=== PATIENT | male | born 1995 | race Hispanic/Latino ===

== ENCOUNTER 2019-04-12 19:54 | Day surgery (SDC) | payer OTHER ==
[2019-04-12 21:43] LABS: #Basophils 0.1 thou/uL (0.0-0.2); #Eosinphils 0.4 thou/uL (0.0-0.7); #Lymphocytes 1.7 thou/uL (1.20-3.40); #Monocytes 0.5 thou/uL (0.11-0.59); #Neutrophils 4.9 thou/uL (1.40-6.50); %Basophils 0.7 % (0.0-1.0); %Eosinophils 5.1 % (0.0-10.0); %Lymphocytes 22.7 % (21.0-51.0); %Monocytes 6.7 % (0.0-10.0); %Neutrophils 64.7 % (42.0-75.0); Hemoglobin 12.2 g/dL (14.0-18.0); MDiff Complete? YES; Mean Corpuscular HGB CONC 30.8 g/dL (32.0-36.0); Mean Corpuscular Hemoglobin 22.8 pg (27.0-31.0); Mean Corpuscular Volume 74.2 fL (78.0-98.0); Mean Platelet Volume 9.7 fL (7.4-10.4); Microcytosis SLIGHT = 6-15 cells (100X) (0-5/hpf); Platelet Count 228 thou/uL (130-400); Platelet Morphology Comment Appears Adequate; RBC Distribution Width 15.4 % (11.5-14.5); Red Blood Cell (RBC) Count 5.35 mill/uL (4.70-6.10); White Blood Cell (WBC) Count 7.6 thou/uL (4.8-10.8)
[2019-04-12 21:45] LABS: ALT (SGPT) 13 U/L (8-55); AST (SGOT) 19 U/L (5-34); Albumin 4.9 g/dL (3.5-5.0); Alkaline Phosphatase 74 U/L (40-150); Anion Gap 14 mmol/L (10-20); BUN (Urea Nitrogen) 16 mg/dL (8.9-20.6); Bilirubin, Total 0.3 mg/dL (0.2-1.2); Calc. Creatinine Clearance 0 mL/min (70-130); Calcium 9.7 mg/dL (7.8-10.44); Carbon Dioxide 26 mmol/L (22-29); Chloride 105 mmol/L (98-107); Estimated GFR-MDRD Greater than 90; Glucose 78 mg/dL (70-105); Potassium 3.9 mmol/L (3.5-5.1); Protein, Total 7.9 g/dL (6.0-8.3); Sodium 141 mmol/L (136-145)
[2019-04-12] MEDS ORDERED: Fentanyl 100 MCG/2 ML VIAL ONE (23:03)
--- NOTE | 2019-04-13 05:03 | HP ---
DATE OF CONSULTATION: 04/12/2019 REASON FOR CONSULTATION: Esophageal food bolus. HISTORY OF PRESENT ILLNESS: Juan Alberto Phan is a 23-year-old man who presented with symptoms of esophageal food bolus impaction. He says that about 3 hours ago, he was eating steak. On the second bite, he felt as if it lodged in the mid chest. Since then, he has been unable to swallow anything, either solid or liquid or even handle his secretions. He is having to spit into a bag. He does not have severe chest pain, but he simply cannot swallow. Symptoms are consistent with prior episodes of esophageal food bolus impaction. Interestingly, the patient states that for the past 3 years, he has had six prior episodes of food bolus impaction requiring EGD with bolus extraction. This has been elsewhere and he recently moved to the area. Interestingly, the patient cannot give any underlying diagnosis for why he keeps having these episodes. He has never heard of the eosinophilic esophagitis. He recalls being told that his esophagus was small in caliber and that there may be an allergy involved, so I suspect he might indeed have eosinophilic esophagitis. He reports the last episode was just three months ago and biopsies were taken at that time, but he never got the result on that. The patient has no other complaints. He will occasionally have some diarrhea and mild abdominal discomfort infrequently. He does not smoke and alcohol use is occasional. There is no family history of GI malignancy. He does not take any medications. REVIEW OF SYSTEMS: Full review of systems including constitutional, head, eyes, ears, nose, throat, GI, , cardiovascular, respiratory, musculoskeletal, neurologic systems is negative, except as noted in the HPI. PAST MEDICAL HISTORY: Recurrent esophageal food bolus impactions. PAST SURGICAL HISTORY: EGD with food bolus extraction x6 over the past 3 years. MEDICATIONS: None. ALLERGIES: NO KNOWN DRUG ALLERGIES. SOCIAL HISTORY: No smoking. No drug use. Alcohol use is occasional. FAMILY HISTORY: Negative for GI malignancy. PHYSICAL EXAMINATION: GENERAL: A healthy-appearing 23-year-old man sitting up in bed comfortably, in no distress, but occasionally spitting into an emesis bag. SKIN: No jaundice, no rashes were palpable. HEENT: Eyes; no scleral icterus. Extraocular movements intact. ENT; mucous membranes moist. No oral lesions. LYMPH: No submandibular or supraclavicular lymphadenopathy. NECK: Thyroid, nontender to palpation. HEART: Regular rate and rhythm. LUNGS: Clear to auscultation bilaterally. ABDOMEN: Flat. Bowel sounds present. Soft, nontender to palpation throughout. EXTREMITIES: No peripheral edema. VESSELS: Radial pulses 2+ bilaterally. NEUROLOGIC: Cranial nerves 2 through 12 intact bilaterally. ASSESSMENT/PLAN: 1. Esophageal food bolus impaction, recurrent. 2. Chronic dysphagia. This makes the 7th episode of food bolus impaction over the past 3 years for the patient. I suspect that he probably has eosinophilic esophagitis. We will plan for urgent EGD tonight to extract the food bolus and also assessment of underlying cause. Depending on findings, we will likely take esophageal biopsies. We may need to discharge him on acid suppression as well. Anticipate he will be able to be discharged home from the PACU. The patient understands and desires to proceed. Thank you for the consultation. Please call anytime with questions or concerns. Job ID: [id number]
--- NOTE | 2019-04-13 05:36 | OP ---
DATE OF PROCEDURE: 04/12/2019 [employer] SURGEON: None. PROCEDURE PERFORMED: Esophagogastroduodenoscopy with foreign body extraction and esophageal biopsies. INDICATIONS FOR PROCEDURE: A 23-year-old man with recurrent esophageal food bolus impaction. MEDICATIONS: See Anesthesia record. FINDINGS: After discussion of the risks, benefits, and alternatives of the procedure, informed consent was obtained and witnessed. Pre-endoscopic cardiopulmonary examination was satisfactory. Time-out was performed before sedation was achieved. Sedation was achieved with Anesthesia assistance in the endoscopy unit. The patient was placed in the left lateral decubitus position, endotracheally intubated for airway protection under general anesthesia. A Pentax adult upper endoscope was placed into the oropharynx and advanced through the cricopharyngeus under direct visualization. In the proximal esophagus at 20 cm, a large meat bolus was encountered in the esophagus. This did not pass on down with simple air insufflation. At this point, we used a Barnard Net in an attempt to snare the food bolus. Thankfully with further air insufflation and gentle nudging with the edge of the Barnard Net, the food bolus passed down distally into the esophagus and finally beyond the GE junction into the stomach and therefore the esophagus was fully evacuated of food contents. At this point, attention was turned toward examining the esophagus. The patient has diffuse narrow caliber esophagus, particularly severe from 20 cm to 30 cm from the incisors. There is mucosal tearing induced of the esophageal mucosa from 20 cm to 30 cm just with endoscope passage. The appearance is highly characteristic of probable eosinophilic esophagitis. Multiple biopsies were obtained from the midesophagus to evaluate for eosinophilic esophagitis. The endoscope was passed beyond a normal-appearing Z-line into the stomach. There is a significant amount of food within the gastric lumen. This obscures the view of much of the gastric antrum and also obscures the view of the pylorus where visualized the gastric antrum appeared normal. There was no evidence of hiatal hernia. The upper endoscope was then completely withdrawn and the patient allowed to recover. The patient tolerated the procedure well. There were no immediate postprocedure complications. IMPRESSION: 1. Esophageal food bolus (steak) at 20 cm, gently advanced into the stomach. 2. Severe esophageal stenosis from 20 cm to 30 cm, with narrow caliber and fibrosis, suggestive of eosinophilic esophagitis. Mucosal tears induced by scope passage. Midesophageal biopsies obtained. 3. Food in the stomach. RECOMMENDATIONS: 1. Liquid diet tomorrow. 2. Mechanical soft diet thereafter. 3. Chew food thoroughly. 4. Prevacid SoluTab 30 mg g by mouth twice daily. 5. Follow up results of esophageal biopsies. 6. Follow up in the GI Clinic in the next 3 to 4 weeks. Job ID: [id number]
== END 2019-04-13 00:39 | disposition home or self-care (01) ==
LOC: EDSEX 19:54 → ERS 19:54 → SDC/OP 23:29
PROVIDERS: ATTEND Internal Medicine
PROC: 0DB58ZZ Excision of Esophagus, Via Natural or Artificial Opening Endoscopic (ICD-10-PCS; principal; 2019-04-12)
PROC: 0DC58ZZ Extirpation of Matter from Esophagus, Via Natural or Artificial Opening Endoscopic (ICD-10-PCS; principal; 2019-04-12)
DX: T18.128A Food in esophagus causing other injury, initial encounter (principal); K20.0 Eosinophilic esophagitis; K22.2 Esophageal obstruction; J45.909 Unspecified asthma, uncomplicated; Z91.010 Allergy to peanuts; Z91.013 Allergy to seafood; Z91.018 Allergy to other foods
CPT/HCPCS: 80053; 85025; 88305; 88312; 88313; 93005; J3010

== ENCOUNTER 2019-08-08 09:20 | Emergency (ER) | payer OTHER ==
[2019-08-08] MEDS ORDERED: Acetaminophen 325 MG TAB ONE (10:08)
== END 2019-08-08 16:39 | disposition home or self-care (01) ==
LOC: ERS 09:20
DX: B34.9 Viral infection, unspecified (principal)
CPT/HCPCS: 87804; 99283

== ENCOUNTER 2020-06-30 20:04 | Emergency (ER) | payer OTHER, SELFPAY ==
[2020-06-30] MEDS ORDERED: Diphenoxylate HCl/Atropine Tablet ONE ×2 (20:38→20:39)
[2020-06-30] MEDS ORDERED: Diphenoxylate HCl/Atropine Tablet PO SCH (20:45)
[2020-06-30 20:53] LABS: #Basophils 0.1 thou/uL (0.0-0.2); #Eosinphils 0.6 thou/uL (0.0-0.7); #Lymphocytes 1.7 thou/uL (1.20-3.40); #Monocytes 1.1 thou/uL (0.11-0.59); %Basophils 0.5 % (0.0-1.0); %Lymphocytes 16.2 % (21.0-51.0); %Monocytes 10.1 % (0.0-10.0); %Neutrophils 67.2 % (42.0-75.0); Mean Corpuscular HGB CONC 32.6 g/dL (32.0-36.0); Mean Corpuscular Hemoglobin 26.6 pg (27.0-31.0); Mean Corpuscular Volume 81.6 fL (78.0-98.0); Mean Platelet Volume 8.1 fL (7.4-10.4); Platelet Count 318 thou/uL (130-400); RBC Distribution Width 15.2 % (11.5-14.5); Red Blood Cell (RBC) Count 5.28 mill/uL (4.70-6.10); White Blood Cell (WBC) Count 10.4 thou/uL (4.8-10.8)
[2020-06-30 21:14] LABS: ALT (SGPT) 7 U/L (8-55); AST (SGOT) 14 U/L (5-34); Alkaline Phosphatase 57 U/L (40-110); Anion Gap 13 mmol/L (10-20); BUN (Urea Nitrogen) 11 mg/dL (8.9-20.6); Bilirubin, Total 0.3 mg/dL (0.2-1.2); Calc. Creatinine Clearance 0 mL/min (70-130); Calcium 7.8 mg/dL (7.8-10.44); Carbon Dioxide 21 mmol/L (22-29); Chloride 108 mmol/L (98-107); Estimated GFR-MDRD Greater than 90; Globulin 2.1 g/dL (2.4-3.5); Glucose 84 mg/dL (70-105); Lipase 15 U/L (8-78); Potassium 3.9 mmol/L (3.5-5.1); Protein, Total 5.1 g/dL (6.0-8.3); Sodium 138 mmol/L (136-145)
[2020-06-30 21:39] LABS: Free T4 (Free Thyroxine) 0.86 ng/dL (0.70-1.48); Thyroid Stimulating Hormone 0.9812 uIU/mL (0.35-4.94)
== END 2020-06-30 22:32 | disposition home or self-care (01) ==
LOC: ERS 20:04
DX: R19.7 Diarrhea, unspecified (principal)
CPT/HCPCS: 36415; 80053; 83690; 84439; 84443; 85025; 99284

== ENCOUNTER 2022-03-27 17:03 | Emergency (ER) | payer OTHER, BC ==
[~2022-03-27 17:03] MED LIST: GASTROGRAFIN 30 ML BOT ONE; Iopamidol-370 76% 500 ML 1 ML ONE
[2022-03-27 17:23] LABS: #Basophils 0.1 thou/uL (0.0-0.2); #Eosinphils 0.2 thou/uL (0.0-0.7); #Lymphocytes 1.7 thou/uL (1.20-3.40); #Monocytes 1.6 thou/uL (0.11-0.59); #Neutrophils 10.5 thou/uL (1.40-6.50); %Basophils 0.4 % (0.0-1.0); %Eosinophils 1.5 % (0.0-10.0); %Lymphocytes 11.9 % (21.0-51.0); %Monocytes 11.2 % (0.0-10.0); %Neutrophils 74.9 % (42.0-75.0); Hemoglobin 17.3 g/dL (14.0-18.0); Mean Corpuscular HGB CONC 32.5 g/dL (32.0-36.0); Mean Corpuscular Hemoglobin 26.7 pg (27.0-31.0); Mean Corpuscular Volume 82.4 fL (78.0-98.0); Mean Platelet Volume 8.5 fL (7.4-10.4); Platelet Count 384 thou/uL (130-400); RBC Distribution Width 15.6 % (11.5-14.5); Red Blood Cell (RBC) Count 6.46 mill/uL (4.70-6.10)
[2022-03-27 17:45] LABS: ALT (SGPT) 7 U/L (8-55); AST (SGOT) 15 U/L (5-34); Alkaline Phosphatase 63 U/L (40-110); Anion Gap 17 mmol/L (10-20); BUN (Urea Nitrogen) 17 mg/dL (8.9-20.6); Bilirubin, Total 0.4 mg/dL (0.2-1.2); Calc. Creatinine Clearance 0 mL/min (70-130); Calcium 8.2 mg/dL (7.8-10.44); Carbon Dioxide 20 mmol/L (22-29); Chloride 102 mmol/L (98-107); Estimated GFR 121; Globulin 2.3 g/dL (2.4-3.5); Glucose 99 mg/dL (70-105); Lipase 16 U/L (8-78); Potassium 4.4 mmol/L (3.5-5.1); Protein, Total 5.3 g/dL (6.0-8.3); Sodium 135 mmol/L (136-145)
[2022-03-27 18:33] LABS: Bacteria/HPF None Seen HPF (None Seen); Bilirubin 1+ (Negative); Blood, Urine Negative (Negative); Clarity Clear (Clear); Glucose, Urine (Dipstick) Normal (Negative); Ketone, Urine 40 mg/dL (Negative); Leukocyte Negative Leu/uL (Negative); Mucous/LPF Rare LPF (<2+); Nitrite Negative (Negative); Protein, Urine (Dipstick) 30 mg/dL (Neg-Trace); RBC/HPF 0-3 HPF (0-3); Renal Epithelial 0-3 HPF (None Seen); Squamous Epithelial 0-3 HPF (0-3); Urobilinogen Normal mg/dL (Less than 2); WBC/HPF 0-3 HPF (0-3)
[2022-03-27] MEDS ORDERED: Ketorolac Tromethamine 30 MG/ML VIAL ONE (21:24)
[2022-03-27] MEDS ORDERED: Sucralfate 1 GM/10 ML UDCUP ONE (21:24)
== END 2022-03-27 21:35 | disposition home or self-care (01) ==
LOC: ERS 17:03
DX: I88.0 Nonspecific mesenteric lymphadenitis (principal)
CPT/HCPCS: 74177; 80053; 81003; 81015; 83690; 85025; 96374; J1885; Q9963; Q9967

== ENCOUNTER 2022-03-28 12:18 | Emergency (ER) | payer OTHER, BC ==
[2022-03-28] MEDS ORDERED: EPINEPHrine 1 MG/ML VIAL ONE ×2 (12:37→12:45)
[2022-03-28] MEDS ORDERED: methylPREDNISolone Sod Succ/PF 125 MG/2 ML VIAL ONE ×2 (12:37→12:45)
[2022-03-28] MEDS ORDERED: Famotidine/PF 20 mg/2ml Vial ONE ×2 (12:37→12:45)
[2022-03-28] MEDS ORDERED: diphenhydrAMINE 50 MG/ML VIAL ONE ×2 (12:37→12:45)
[2022-03-28 12:52] LABS: #Basophils 0.1 thou/uL (0.0-0.2); #Eosinphils 0.4 thou/uL (0.0-0.7); #Monocytes 1.7 thou/uL (0.11-0.59); #Neutrophils 12.3 thou/uL (1.40-6.50); %Basophils 0.4 % (0.0-1.0); %Eosinophils 2.2 % (0.0-10.0); %Lymphocytes 12.2 % (21.0-51.0); %Monocytes 10.2 % (0.0-10.0); Hemoglobin 15.9 g/dL (14.0-18.0); Mean Corpuscular HGB CONC 32.7 g/dL (32.0-36.0); Mean Corpuscular Hemoglobin 27.1 pg (27.0-31.0); Mean Corpuscular Volume 82.9 fL (78.0-98.0); Mean Platelet Volume 8.3 fL (7.4-10.4); Platelet Count 417 thou/uL (130-400); RBC Distribution Width 15.6 % (11.5-14.5); Red Blood Cell (RBC) Count 5.87 mill/uL (4.70-6.10); White Blood Cell (WBC) Count 16.5 thou/uL (4.8-10.8)
[2022-03-28 13:06] LABS: ALT (SGPT) 7 U/L (8-55); AST (SGOT) 21 U/L (5-34); Albumin 2.9 g/dL (3.5-5.0); Alkaline Phosphatase 59 U/L (40-110); Anion Gap 15 mmol/L (10-20); BUN (Urea Nitrogen) 16 mg/dL (8.9-20.6); Bilirubin, Total 0.4 mg/dL (0.2-1.2); Calc. Creatinine Clearance 0 mL/min (70-130); Calcium 7.9 mg/dL (7.8-10.44); Carbon Dioxide 21 mmol/L (22-29); Chloride 101 mmol/L (98-107); Estimated GFR 120; Globulin 2.3 g/dL (2.4-3.5); Glucose 113 mg/dL (70-105); Lipase 19 U/L (8-78); Magnesium 1.7 mg/dL (1.6-2.6); Potassium 4.4 mmol/L (3.5-5.1); Protein, Total 5.2 g/dL (6.0-8.3); Sodium 133 mmol/L (136-145)
[2022-03-28 16:21] LABS: Lactic Acid 1.7 mmol/L (0.5-2.2)
[2022-03-28] MEDS ORDERED: Ondansetron PF 4 MG/2 ML Vial ONE (16:44)
[2022-03-28] MEDS ORDERED: Dicyclomine 20 MG TAB ONE (16:44)
== END 2022-03-28 17:14 | disposition home or self-care (01) ==
LOC: ERS 12:18
DX: T78.09XA Anaphylactic reaction due to other food products, initial encounter (principal); I88.0 Nonspecific mesenteric lymphadenitis
CPT/HCPCS: 36415; 80053; 83605; 83690; 83735; 85025; 94760; 96372; 96374; 96375; J0171; J1200; J2405; J2930; S0028

== ENCOUNTER 2022-04-02 13:32 | Emergency (ER) | payer OTHER, BC ==
[2022-04-02 14:12] LABS: #Basophils 0.1 thou/uL (0.0-0.2); #Eosinphils 0.8 thou/uL (0.0-0.7); #Lymphocytes 1.6 thou/uL (1.20-3.40); #Monocytes 0.9 thou/uL (0.11-0.59); #Neutrophils 15.5 thou/uL (1.40-6.50); %Basophils 0.4 % (0.0-1.0); %Eosinophils 4.1 % (0.0-10.0); %Lymphocytes 8.3 % (21.0-51.0); %Monocytes 4.9 % (0.0-10.0); %Neutrophils 82.3 % (42.0-75.0); Hemoglobin 15.5 g/dL (14.0-18.0); Mean Corpuscular HGB CONC 32.3 g/dL (32.0-36.0); Mean Corpuscular Hemoglobin 26.9 pg (27.0-31.0); Mean Corpuscular Volume 83.3 fL (78.0-98.0); Mean Platelet Volume 7.9 fL (7.4-10.4); Platelet Count 409 thou/uL (130-400); RBC Distribution Width 16.3 % (11.5-14.5); Red Blood Cell (RBC) Count 5.76 mill/uL (4.70-6.10); White Blood Cell (WBC) Count 18.8 thou/uL (4.8-10.8)
[2022-04-02 14:36] LABS: ALT (SGPT) 9 U/L (8-55); AST (SGOT) 17 U/L (5-34); Albumin 3.1 g/dL (3.5-5.0); Alkaline Phosphatase 63 U/L (40-110); Anion Gap 17 mmol/L (10-20); BUN (Urea Nitrogen) 15 mg/dL (8.9-20.6); Bilirubin, Total 0.6 mg/dL (0.2-1.2); Calc. Creatinine Clearance 0 mL/min (70-130); Calcium 8.4 mg/dL (7.8-10.44); Carbon Dioxide 20 mmol/L (22-29); Chloride 101 mmol/L (98-107); Estimated GFR 123; Globulin 2.3 g/dL (2.4-3.5); Glucose 85 mg/dL (70-105); Lipase 26 U/L (8-78); Magnesium 1.5 mg/dL (1.6-2.6); Protein, Total 5.4 g/dL (6.0-8.3); Sodium 134 mmol/L (136-145)
[2022-04-02] MEDS ORDERED: Iopamidol-370 76% 500 ML 1 ML ONE (15:30)
[2022-04-02] MEDS ORDERED: Piperacillin/Tazobactam 3.375 GM VIAL ONE (16:07)
[2022-04-02 16:20] LABS: Bilirubin Negative (Negative); Blood, Urine Negative (Negative); Clarity Clear (Clear); Glucose, Urine (Dipstick) Normal (Negative); Ketone, Urine 60 mg/dL (Negative); Leukocyte Negative Leu/uL (Negative); Nitrite Negative (Negative); Protein, Urine (Dipstick) 20 mg/dL (Neg-Trace); Urobilinogen Normal mg/dL (Less than 2); pH, Urine 5.5 (5.0-9.0)
[2022-04-02 16:24] LABS: Specific Gravity, Urine 1.064 (1.002-1.036)
[2022-04-02 17:27] LABS: SARS-CoV-2 NAA Rapid Test Not Detected (NotDetected)
== END 2022-04-03 00:27 ==
LOC: ERS 13:32
DX: A41.9 Sepsis, unspecified organism (principal); K52.9 Noninfective gastroenteritis and colitis, unspecified; Z20.822 Contact with and (suspected) exposure to COVID-19
CPT/HCPCS: 36415; 74177; 80053; 81003; 83605; 83690; 83735; 85025; 87040; 87086; 96361; 96365; J2543; Q9967; U0002

== ENCOUNTER 2022-05-26 12:56 | Emergency (ER) | payer OTHER, BC ==
[2022-05-26 13:56] LABS: #Eosinphils 0.4 thou/uL (0.0-0.7); #Lymphocytes 1.3 thou/uL (1.20-3.40); #Monocytes 0.5 thou/uL (0.11-0.59); %Basophils 0.7 % (0.0-1.0); %Eosinophils 6.1 % (0.0-10.0); %Lymphocytes 20.2 % (21.0-51.0); %Monocytes 8.5 % (0.0-10.0); %Neutrophils 64.5 % (42.0-75.0); Hemoglobin 11.2 g/dL (14.0-18.0); Mean Corpuscular HGB CONC 31.5 g/dL (32.0-36.0); Mean Corpuscular Hemoglobin 27.2 pg (27.0-31.0); Mean Corpuscular Volume 86.4 fL (78.0-98.0); Mean Platelet Volume 8.6 fL (7.4-10.4); Platelet Count 227 thou/uL (130-400); RBC Distribution Width 14.3 % (11.5-14.5); Red Blood Cell (RBC) Count 4.12 mill/uL (4.70-6.10); White Blood Cell (WBC) Count 6.2 thou/uL (4.8-10.8)
[2022-05-26 14:25] LABS: ALT (SGPT) 21 U/L (8-55); AST (SGOT) 26 U/L (5-34); Albumin 3.6 g/dL (3.5-5.0); Alkaline Phosphatase 68 U/L (40-110); Anion Gap 13 mmol/L (10-20); BUN (Urea Nitrogen) 6 mg/dL (8.9-20.6); Bilirubin, Total 0.3 mg/dL (0.2-1.2); Calc. Creatinine Clearance 0 mL/min (70-130); Calcium 6.7 mg/dL (7.8-10.44); Carbon Dioxide 26 mmol/L (22-29); Chloride 106 mmol/L (98-107); Estimated GFR 134; Globulin 2.7 g/dL (2.4-3.5); Glucose 80 mg/dL (70-105); Potassium 3.7 mmol/L (3.5-5.1); Protein, Total 6.3 g/dL (6.0-8.3); Sodium 141 mmol/L (136-145)
[2022-05-26] MEDS ORDERED: CALCIUM GLUC 1GM/NS 50ML 1 GM in Premix Bag 1 BAG IVPB SCH (15:30)
[2022-05-26] MEDS ORDERED: Magnesium 2 GM/50 ML BAG (IN WATER) ONE (15:52)
[2022-05-26 16:08] LABS: Magnesium 0.9 mg/dL (1.6-2.6); Phosphorus 4.1 mg/dL (2.3-4.7)
[2022-05-26 19:16] LABS: ALT (SGPT) 21 U/L (8-55); AST (SGOT) 23 U/L (5-34); Albumin 3.7 g/dL (3.5-5.0); Alkaline Phosphatase 76 U/L (40-110); Anion Gap 12 mmol/L (10-20); BUN (Urea Nitrogen) 5 mg/dL (8.9-20.6); Bilirubin, Total 0.3 mg/dL (0.2-1.2); Calc. Creatinine Clearance 0 mL/min (70-130); Calcium 7.5 mg/dL (7.8-10.44); Carbon Dioxide 27 mmol/L (22-29); Chloride 105 mmol/L (98-107); Estimated GFR 132; Globulin 2.8 g/dL (2.4-3.5); Glucose 84 mg/dL (70-105); Magnesium 2.3 mg/dL (1.6-2.6); Potassium 3.4 mmol/L (3.5-5.1); Protein, Total 6.5 g/dL (6.0-8.3); Sodium 141 mmol/L (136-145)
== END 2022-05-26 19:37 | disposition home or self-care (01) ==
LOC: ERS 12:56
DX: E83.51 Hypocalcemia (principal); E83.42 Hypomagnesemia
CPT/HCPCS: 36415; 80053; 83735; 84100; 85025; 93005; 96365; 96366; 96368; J0610; J3475

== ENCOUNTER 2023-02-28 18:37 | Emergency (ER) | payer OTHER, BC ==
[~2023-02-28 18:37] MED LIST changes: -GASTROGRAFIN 30 ML BOT ONE; -Iopamidol-370 76% 500 ML 1 ML ONE; +Iopamidol-370 76% 500 ML MDV (1 ML CHARGE) ONE
[2023-02-28 19:18] LABS: #Basophils 0.1 thou/uL (0.0-0.2); #Eosinphils 0.6 thou/uL (0.0-0.7); #Monocytes 1.3 thou/uL (0.11-0.59); %Basophils 0.4 % (0.0-1.0); %Eosinophils 3.9 % (0.0-10.0); %Lymphocytes 10.3 % (21.0-51.0); %Monocytes 9.2 % (0.0-10.0); %Neutrophils 75.9 % (42.0-75.0); Hemoglobin 17.7 g/dL (14.0-18.0); Mean Corpuscular HGB CONC 33.2 g/dL (32.0-36.0); Mean Corpuscular Volume 84.2 fl (78.0-98.0); Platelet Count 406 10x3/uL (130-400); RBC Distribution Width 13.8 % (11.5-14.5); Red Blood Cell (RBC) Count 6.33 mill/uL (4.70-6.10); White Blood Cell (WBC) Count 14.4 10x3/uL (4.8-10.8)
[2023-02-28 19:40] LABS: ALT (SGPT) 8 U/L (8-55); AST (SGOT) 11 U/L (5-34); Albumin 3.3 g/dL (3.5-5.0); Alkaline Phosphatase 75 U/L (40-110); Anion Gap 13 mmol/L (10-20); BUN (Urea Nitrogen) 14 mg/dL (8.9-20.6); Bilirubin, Total 0.3 mg/dL (0.2-1.2); Calc. Creatinine Clearance 0 mL/min (70-130); Calcium 8.6 mg/dL (7.8-10.44); Carbon Dioxide 26 mmol/L (22-29); Chloride 103 mmol/L (98-107); Estimated GFR 120; Globulin 2.2 g/dL (2.4-3.5); Glucose 93 mg/dL (70-105); Lipase 17 U/L (8-78); Magnesium 1.7 mg/dL (1.6-2.6); Potassium 3.9 mmol/L (3.5-5.1); Protein, Total 5.5 g/dL (6.0-8.3); Sodium 138 mmol/L (136-145)
== END 2023-02-28 23:56 | disposition home or self-care (01) ==
LOC: ERS 18:37
DX: R19.7 Diarrhea, unspecified (principal); E86.0 Dehydration; R59.1 Generalized enlarged lymph nodes; D72.829 Elevated white blood cell count, unspecified
CPT/HCPCS: 36415; 74177; 80053; 83690; 83735; 85025; 96360; Q9967

== ENCOUNTER 2023-03-08 03:39 | Inpatient (IN) | payer BC, OTHER ==
[2023-03-08] MEDS ORDERED: Morphine 4 MG/ML VIAL ONE (04:31)
[2023-03-08] MEDS ORDERED: Ondansetron PF 4 MG/2 ML Vial ONE (04:32)
[2023-03-08 05:12] LABS: #Basophils 0.1 thou/uL (0.0-0.2); #Eosinphils 0.4 thou/uL (0.0-0.7)
[2023-03-08] MEDS ORDERED: diphenhydrAMINE 50 MG/ML VIAL ONE (05:17)
[2023-03-08 05:33] LABS: ALT (SGPT) 9 U/L (8-55); AST (SGOT) 15 U/L (5-34); Albumin 2.6 g/dL (3.5-5.0); Alkaline Phosphatase 77 U/L (40-110); Anion Gap 12 mmol/L (10-20); BUN (Urea Nitrogen) 10 mg/dL (8.9-20.6); Bilirubin, Total 0.4 mg/dL (0.2-1.2); Calc. Creatinine Clearance 0 mL/min (70-130); Calcium 8.1 mg/dL (7.8-10.44); Carbon Dioxide 22 mmol/L (22-29); Chloride 107 mmol/L (98-107); Estimated GFR 96; Glucose 109 mg/dL (70-105); Lipase 14 U/L (8-78); Magnesium 1.5 mg/dL (1.6-2.6); Potassium 3.5 mmol/L (3.5-5.1); Protein, Total 4.6 g/dL (6.0-8.3); Sodium 137 mmol/L (136-145)
[2023-03-08] MEDS ORDERED: Magnesium 2 GM/50 ML BAG (IN WATER) ONE (05:45)
[2023-03-08 05:49] LABS: HIV (1/2) Antibody/Antigen Non-Reactive (NonReactive); HIV 1/2 INDEX 0.23 S/CO (<1.00)
[2023-03-08 06:08] LABS: #Monocytes 1.2 thou/uL (0.11-0.59); #Neutrophils 11.8 thou/uL (1.40-6.50); %Basophils 0.5 % (0.0-1.0); %Eosinophils 2.9 % (0.0-10.0); %Lymphocytes 11.2 % (21.0-51.0); %Neutrophils 76.9 % (42.0-75.0); Mean Corpuscular HGB CONC 33.5 g/dL (32.0-36.0); Mean Corpuscular Hemoglobin 28.3 pg (27.0-31.0); Mean Corpuscular Volume 84.6 fl (78.0-98.0); Mean Platelet Volume 10.3 fL (7.4-10.4); Platelet Count 417 10x3/uL (130-400); RBC Distribution Width 15.8 % (11.5-14.5); Red Blood Cell (RBC) Count 6.35 mill/uL (4.70-6.10); White Blood Cell (WBC) Count 15.3 10x3/uL (4.8-10.8)
[2023-03-08 06:10] LABS: Bacteria/HPF None Seen HPF (None Seen); Bilirubin Negative (Negative); Blood, Urine Negative (Negative); CAUTI Indications for Culture Pelvic or flank pain; Clarity Clear (Clear); Glucose, Urine (Dipstick) Normal (Negative); Ketone, Urine Trace mg/dL (Negative); Leukocyte Negative Leu/uL (Negative); Nitrite Negative (Negative); Protein, Urine (Dipstick) 30 mg/dL (Neg-Trace); RBC/HPF 0-3 HPF (0-3); Squamous Epithelial 0-3 HPF (0-3); Urobilinogen Normal mg/dL (Less than 2); WBC/HPF 0-3 HPF (0-3)
[2023-03-08 06:12] LABS: Specific Gravity, Urine 1.059 (1.002-1.036)
[2023-03-08 06:13] LABS: Urine Culture Reflex No No
[2023-03-08] MEDS ORDERED: Ondansetron ODT 4 MG TAB PO PRN (08:26)
[2023-03-08] MEDS ORDERED: Ondansetron PF 4 MG/2 ML Vial IVP PRN (08:26)
[2023-03-08] MEDS ORDERED: Electrolyte Replacement Protocol 1 EACH FS SCH (10:45)
[2023-03-08] MEDS ORDERED: Electrolyte Replacement Protocol FS PRN (10:45)
[2023-03-08] MEDS: Sodium Chloride 0.9% 1,000 ML IV SCH ×2 (11:17→21:08)
[2023-03-08] MEDS ORDERED: Iopamidol-370 76% 500 ML MDV (1 ML CHARGE) ONE (13:25)
[2023-03-08 15:47] VITALS: BMI 17.7
[2023-03-08] MEDS: Acetaminophen 325 MG TAB PO PRN ×2 (16:26→22:27)
[2023-03-08] MEDS: Potassium Chloride 20 MEQ in Premix Bag 1 BAG IVPB SCH ×2 (16:27→17:52)
[2023-03-08] MEDS ORDERED: Potassium Chloride 20 MEQ TAB PO SCH (18:15)
[2023-03-09 02:10] LABS: Campy jejuni + coli by PCR Negative (Negative); STEC Shiga Toxin 1+2 Negative (Negative); Salmonella spp. by PCR Negative (Negative); Shigella spp + EIEC by PCR Negative (Negative)
[2023-03-09 07:10] LABS: #Eosinphils 0.5 thou/uL (0.0-0.7); #Monocytes 0.8 thou/uL (0.11-0.59); #Neutrophils 6.2 thou/uL (1.40-6.50); %Basophils 0.5 % (0.0-1.0); %Eosinophils 5.8 % (0.0-10.0); %Lymphocytes 8.9 % (21.0-51.0); %Monocytes 9.3 % (0.0-10.0); %Neutrophils 74.9 % (42.0-75.0); Mean Corpuscular HGB CONC 33.5 g/dL (32.0-36.0); Mean Corpuscular Hemoglobin 28.3 pg (27.0-31.0); Mean Corpuscular Volume 84.4 fl (78.0-98.0); Mean Platelet Volume 9.8 fL (7.4-10.4); Platelet Count 314 10x3/uL (130-400); RBC Distribution Width 14.9 % (11.5-14.5); Red Blood Cell (RBC) Count 5.06 mill/uL (4.70-6.10); White Blood Cell (WBC) Count 8.3 10x3/uL (4.8-10.8)
[2023-03-09 07:12] LABS: Hemoglobin 14.3 g/dL (14.0-18.0)
[2023-03-09 07:32] LABS: Anion Gap 11 mmol/L (10-20); BUN (Urea Nitrogen) 8 mg/dL (8.9-20.6); Calc. Creatinine Clearance 112 mL/min (70-130); Calcium 7.4 mg/dL (7.8-10.44); Carbon Dioxide 15 mmol/L (22-29); Chloride 113 mmol/L (98-107); Estimated GFR 124; Glucose 102 mg/dL (70-105); Potassium 3.5 mmol/L (3.5-5.1); Sodium 135 mmol/L (136-145)
[2023-03-09] MEDS ORDERED: Potassium Bicarbonate/Cit Ac 20 MEQ TAB PO SCH (08:00)
[2023-03-09] MEDS ORDERED: Pantoprazole 40 MG GRANULES PACKET PO SCH (09:00)
[2023-03-09] MEDS: Lactated Ringer's 1,000 ML IV SCH ×2 (09:01→20:48)
[2023-03-09 09:05] LABS: Magnesium 1.5 mg/dL (1.6-2.6)
[2023-03-10 04:30] LABS: #Eosinphils 0.5 thou/uL (0.0-0.7); #Neutrophils 8.6 thou/uL (1.40-6.50); %Basophils 0.3 % (0.0-1.0); %Eosinophils 4.1 % (0.0-10.0); %Lymphocytes 11.3 % (21.0-51.0); %Monocytes 8.5 % (0.0-10.0); %Neutrophils 75.5 % (42.0-75.0); Hemoglobin 13.8 g/dL (14.0-18.0); Mean Corpuscular HGB CONC 34.1 g/dL (32.0-36.0); Mean Corpuscular Hemoglobin 28.5 pg (27.0-31.0); Mean Corpuscular Volume 83.7 fl (78.0-98.0); Mean Platelet Volume 9.5 fL (7.4-10.4); Platelet Count 285 10x3/uL (130-400); RBC Distribution Width 15.1 % (11.5-14.5); Red Blood Cell (RBC) Count 4.84 mill/uL (4.70-6.10); White Blood Cell (WBC) Count 11.4 10x3/uL (4.8-10.8)
[2023-03-10 04:52] LABS: Anion Gap 9 mmol/L (10-20); BUN (Urea Nitrogen) 8 mg/dL (8.9-20.6); Calc. Creatinine Clearance 121 mL/min (70-130); Calcium 7.6 mg/dL (7.8-10.44); Carbon Dioxide 18 mmol/L (22-29); Chloride 111 mmol/L (98-107); Estimated GFR 127; Glucose 95 mg/dL (70-105); Magnesium 1.6 mg/dL (1.6-2.6); Potassium 3.8 mmol/L (3.5-5.1); Sodium 134 mmol/L (136-145)
[2023-03-10] MEDS: Dicyclomine 20 MG TAB PO PRN ×3 (06:26→20:14)
[2023-03-10] MEDS: Lactated Ringer's 1,000 ML IV SCH ×2 (09:04→23:14)
[2023-03-10] MEDS ORDERED: Magnesium Sulfate 4 GM in Sodium Chloride 0.9% 250 ML 250 ML IVPB SCH (10:45)
[2023-03-10] MEDS ORDERED: Sodium Bicarb 50 MEQ/50 ML VIAL FS SCH (11:00)
[2023-03-10] MEDS ORDERED: Magnesium Sulfate In Water 4 GM in Premix Bag 1 BAG IVPB SCH (12:00)
[2023-03-10] MEDS ORDERED: Sodium Bicarbonate 50 MEQ in Dextrose 5% in Water 1,000 ML FS SCH (13:00)
[2023-03-10] MEDS: Rifaximin 200 MG TAB PO SCH ×2 (16:18→20:14)
[2023-03-10] MEDS: Acetaminophen 325 MG TAB PO PRN (23:14)
[2023-03-11] MEDS: Dicyclomine 20 MG TAB PO PRN ×2 (02:14→08:42)
[2023-03-11] MEDS: Simethicone Chewable 80 MG TAB PO PRN ×2 (03:08→08:51)
[2023-03-11 06:36] LABS: #Eosinphils 0.5 thou/uL (0.0-0.7); #Neutrophils 10.5 thou/uL (1.40-6.50); %Basophils 0.3 % (0.0-1.0); %Eosinophils 3.4 % (0.0-10.0); %Lymphocytes 11.1 % (21.0-51.0); %Monocytes 7.1 % (0.0-10.0); %Neutrophils 77.7 % (42.0-75.0); Hemoglobin 13.4 g/dL (14.0-18.0); Mean Corpuscular HGB CONC 34.5 g/dL (32.0-36.0); Mean Corpuscular Hemoglobin 28.6 pg (27.0-31.0); Mean Corpuscular Volume 82.9 fl (78.0-98.0); Mean Platelet Volume 10.1 fL (7.4-10.4); Platelet Count 301 10x3/uL (130-400); Red Blood Cell (RBC) Count 4.68 mill/uL (4.70-6.10); White Blood Cell (WBC) Count 13.6 10x3/uL (4.8-10.8)
[2023-03-11 07:07] LABS: Anion Gap 9 mmol/L (10-20); BUN (Urea Nitrogen) 7 mg/dL (8.9-20.6); Calc. Creatinine Clearance 130 mL/min (70-130); Calcium 7.6 mg/dL (7.8-10.44); Carbon Dioxide 22 mmol/L (22-29); Chloride 108 mmol/L (98-107); Estimated GFR 129; Glucose 87 mg/dL (70-105); Magnesium 1.8 mg/dL (1.6-2.6); Potassium 3.4 mmol/L (3.5-5.1); Sodium 136 mmol/L (136-145)
[2023-03-11] MEDS: Rifaximin 200 MG TAB PO SCH ×2 (08:42→15:00)
[2023-03-11 11:56] VITALS: BP 104/63; TEMP 98.1
[2023-03-11] MEDS ORDERED: Potassium Chloride 20 MEQ TAB PO SCH (14:15)
[2023-03-15 22:37] LABS: 5 HIAA-24H Urine 3.7 mg/24 hr (0.0-14.9)
[2023-03-17 15:15] LABS: Fatty Acid Droplets Normal (.); Neutral Fats And/Or Soaps Normal (.)
== END 2023-03-11 15:11 | disposition home or self-care (01) | DRG 391 ==
LOC: ERS 03:39 → SUATTDRO 03:39 → ERHOLD 08:49 → T4-B 14:33
PROVIDERS: ADMIT Internal Medicine; ATTEND Internal Medicine
DX: K20.0 Eosinophilic esophagitis (principal); E43 Unspecified severe protein-calorie malnutrition; Z68.1 Body mass index [BMI] 19.9 or less, adult; R64 Cachexia; K58.0 Irritable bowel syndrome with diarrhea; E86.0 Dehydration; E83.42 Hypomagnesemia; R62.7 Adult failure to thrive; Z91.010 Allergy to peanuts; Z91.013 Allergy to seafood; Z79.2 Long term (current) use of antibiotics; Z79.899 Other long term (current) drug therapy; Z98.890 Other specified postprocedural states; Z91.018 Allergy to other foods
CPT/HCPCS: 36415; 74177; 80048; 80053; 81001; 82308; 82705; 82941; 83497; 83630; 83690; 83735; 84586; 85025; 85652; 86140; 87177; 87324; 87328; 87329; 87389; 87449; 87505; 96365; 96375; J1200; J2270; J2405; J3475; J3480; J7050; J7070; J7120; Q9967